=== PATIENT | male | born 1980 | race Caucasian/White ===

== ENCOUNTER 2021-11-05 19:50 | Emergency (ER) | payer OTHER ==
[2021-11-05] MEDS ORDERED: VIBRAMYCIN100 MG PO (22:53)
[2021-11-05] MEDS ORDERED: BACITRACIN15 GM TOP (22:53)
== END 2021-11-05 23:08 | disposition home or self-care (01) ==
LOC: FER 19:50
DX: S01.112A Laceration without foreign body of left eyelid and periocular area, initial encounter (principal); S01.21XA Laceration without foreign body of nose, initial encounter; S00.81XA Abrasion of other part of head, initial encounter; F17.210 Nicotine dependence, cigarettes, uncomplicated; Y04.0XXA Assault by unarmed brawl or fight, initial encounter; Y92.149 Unspecified place in prison as the place of occurrence of the external cause
CPT/HCPCS: 70450; 70486